=== PATIENT | female | born 1955 | race Caucasian/White ===

== ENCOUNTER → 2016-10-31 08:34 | Outpatient (CLI) | payer MEDICARE ==
[2015-05-04 13:16] VITALS: BMI 48.4
[~2016-10-31 08:34] MED LIST: CELEXA20 MG PO; ELIQUIS2.5 MG PO; MS CONTIN15 MG PO; OXYCODONE HCL5 MG PO; PRILOSEC20 MG PO; SYNTHROID112 MCG PO; TIZANIDINE; ULTRACET TABLET1 TAB PO; ULTRAM50 MG PO; ZANAFLEX4 MG PO
== END ==
LOC: D.MRI 08:34
DX: M54.2 Cervicalgia (principal); M54.5 Low back pain

== ENCOUNTER 2017-09-17 09:21 | Day surgery (SDC) | payer MEDICARE ==
[~2017-09-17] VITALS: Ht 165.1 cm; Wt 142.9 kg
--- NOTE | ~2017-09-17 | OP ---
PATIENT NAME: MAURILIO BRYAN MEDICAL RECORD: [id number] :57 LOCATION:[facility] ADMISSION DATE: SURGEON: TA HENRIQUEZ DO DATE OF OPERATION: 09/17/2017 PROCEDURE: EGD with balloon dilation and biopsies. INDICATIONS FOR PROCEDURE: Dysphagia, nausea, family history positive for cancer of the gastrointestinal tract. SCOPE: Olympus video gastroscope. MEDICATIONS: Propofol 300 mg IV per anesthesia. ESTIMATED BLOOD LOSS: Minimal. COMPLICATIONS: None. FINDINGS: Informed consent was given. The patient was made comfortable with the above medication. After reaching an adequate level of sedation by slow IV push, the patient was placed on her left side. The endoscope was then advanced under direct visualization through the mouth to the second portion of the duodenum. The upper, middle, and lower thirds of the esophagus appeared normal. At the GE junction, there was some possible stenosis. A 16-18 mm CRE balloon was placed through the working channel of the endoscope across the GE junction and the balloon was inflated up to 18 mm maximum diameter for dilation. Post-dilation endoscopic appearance was satisfactory. Also, at the GE junction, there was LA class C reflux induced esophagitis as well as probable continued Noriega's mucosa. A few cold forceps biopsies were taken to submit for histology and to rule out dysplasia. There was no endoscopic evidence of dysplasia by appearance. The endoscope was advanced beyond the GE junction into the stomach and retroflexed to view the cardia, where a small sliding hiatal hernia was present. Throughout the entire stomach, there was some granularity, which could be consistent with gastritis. Random biopsies were taken to submit for histology and to rule out H. pylori. The endoscope was advanced beyond the pylorus into the duodenum. The entire examined duodenum appeared normal down to the second portion. The endoscope was then withdrawn from the patient. The patient tolerated the procedure well and there were no complications. IMPRESSION: 1. Esophageal stenosis at the gastroesophageal junction, dilated to 18 mm. 2. Reflux esophagitis grade C. 3. 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 4. Small sliding hiatal hernia. 5. Possible gastritis with biopsies pending. PLAN AND RECOMMENDATIONS: 1. Discharge home when recovery parameters are met. 2. GERD diet and reflux precautions. 3. Increase omeprazole 40 mg daily for 8 weeks and then reduce this back down to 20 mg daily. 4. 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 5. We will follow the dysphagia. If this does not improve post-dilation and on OPERATIVE REPORT [id number] MAURILIO BRYAN WAITS the omeprazole 40 mg daily, she may require further workup in the form of a modified barium swallow and/or barium esophagram with esophageal manometry. TRANSINT:[id number] Voice Confirmation ID: [id number] DOCUMENT ID: [id number] TA HENRIQUEZ DO at 1524 CC: [id number] DICTATION DATE: 09/17/17 1242 ENGINEERING TECHNOLOGIST: 09/17/17 1453 [facility] 09/17/17 [id number] [place] [address]
[2017-09-17] MEDS ORDERED: NORVASC5 MG PO (10:30)
[2017-09-17 10:41] VITALS: BP 135/78; Ht 165.1 cm; Wt 142.9 kg
[2017-09-17 10:53] LABS: HEMATOCRIT 45.4 % (36.0-48.0); HEMOGLOBIN 15.3 g/dL (12-16); MCH 28.4 pg (26.0-34.0); MCHC 33.7 g/dL (31.0-37.0); MCV 84.2 fL (80.0-100.0); MEAN PLATELET VOLUME 10.3 fL (7.4-10.4); RBC 5.39 10x6/uL (4.00-5.40); RDW 13.8 % (11.5-14.5); WBC 10.3 10x3/uL (4.8-10.8)
== END 2017-09-17 14:00 | disposition home or self-care (01) ==
LOC: D.OPS 09:21
PROVIDERS: Anesthesiology
DX: K22.2 Esophageal obstruction (principal); K44.9 Diaphragmatic hernia without obstruction or gangrene; K21.0 Gastro-esophageal reflux disease with esophagitis; K22.70 Barrett's esophagus without dysplasia; K29.50 Unspecified chronic gastritis without bleeding; Z01.812 Encounter for preprocedural laboratory examination; Z80.0 Family history of malignant neoplasm of digestive organs

== ENCOUNTER → 2017-09-25 09:36 | Outpatient (CLI) | payer MEDICARE ==
[2017-09-17 10:41] VITALS: BMI 52.5
[~2017-09-25 09:36] MED LIST changes: +NORVASC5 MG PO
== END | disposition home or self-care (01) ==
LOC: D.RAD 09:36
DX: R13.10 Dysphagia, unspecified (principal)

== ENCOUNTER 2018-07-23 18:06 | Emergency (ER) | payer MEDICARE ==
[~2018-07-23] VITALS: Ht 165.1 cm; Wt 133.2 kg
[2018-07-23 18:12] VITALS: Ht 165.1 cm; Wt 133.2 kg
[2018-07-23 18:51] LABS: BASOPHILS 0.2 % (0-2); EOSINOPHILS 2.2 % (0-7); HEMATOCRIT 46.7 % (36.0-48.0); HEMOGLOBIN 15.5 g/dL (12-16); IMMATURE GRANULOCYTES 0.3 % (0-5); MCH 28.5 pg (26.0-34.0); MCHC 33.2 g/dL (31.0-37.0); MCV 85.8 fL (80.0-100.0); MEAN PLATELET VOLUME 10.2 fL (7.4-10.4); MONOCYTES 6.2 % (2-11); NEUTROPHILS 76.1 % (40-80); PLATELET COUNT 278 10x3/uL (130-400); RBC 5.44 10x6/uL (4.00-5.40); RDW 14.4 % (11.5-14.5); WBC 14.9 10x3/uL (4.8-10.8)
[2018-07-23 19:05] LABS: APPEARANCE CLEAR (CLEAR); BILIRUBIN NEGATIVE (NEGATIVE); COLOR YELLOW (YELLOW); GLUCOSE NEGATIVE (NEGATIVE); KETONE NEGATIVE (NEGATIVE); NITRITE NEGATIVE (NEGATIVE); PROTEIN 1+ mg/dL (NEGATIVE); UROBILINOGEN NORMAL (NORMAL)
[2018-07-23 19:06] LABS: WHITE CELLS - URINE 0-5 /hpf (0-5)
[2018-07-23 19:07] LABS: AMORPHOUS SEDIMENT <1+ /lpf (NONE SEEN); BACTERIA FEW /hpf (NONE SEEN); GRANULAR CAST OCC /lpf (NONE SEEN); HYALINE CAST OCC /lpf (NONE SEEN); MUCUS <1+ /lpf (NONE SEEN)
[2018-07-23 19:08] LABS: ALBUMIN 3.4 g/dL (3.4-5.0); BILIRUBIN - TOTAL 0.71 mg/dL (0.2-1.3); CALCIUM 9.5 mg/dL (8.5-10.1); CARBON DIOXIDE 26.9 mmol/L (21.0-32.0); POTASSIUM - SERUM 3.9 mmol/L (3.5-5.1); PROTEIN - SERUM 8.4 g/dL (6.4-8.2)
[2018-07-23] MEDS ORDERED: AUGMENTIN 875-11 TAB PO (21:18)
[2018-07-23] MEDS ORDERED: FLAGYL500 MG PO (21:18)
[2018-07-23 22:22] VITALS: BP 142/72
== END 2018-07-23 22:23 | disposition home or self-care (01) ==
LOC: D.ER 18:06
PROVIDERS: Emergency Medicine
DX: K50.00 Crohn's disease of small intestine without complications (principal); R10.32 Left lower quadrant pain; D72.829 Elevated white blood cell count, unspecified; I10 Essential (primary) hypertension

== ENCOUNTER → 2018-07-24 08:00 | Outpatient (CLI) | payer MEDICARE ==
[2018-07-23 18:12] VITALS: BMI 48.8
[~2018-07-24 08:00] MED LIST changes: +AUGMENTIN 875-11 TAB PO; +FLAGYL500 MG PO
== END | disposition home or self-care (01) ==
LOC: D.MAMMO 08:00
DX: Z12.31 Encounter for screening mammogram for malignant neoplasm of breast (principal)

== ENCOUNTER 2018-09-07 11:08 | Day surgery (SDC) | payer MEDICARE ==
[~2018-09-07] VITALS: Ht 165.1 cm; Wt 136.8 kg
[2018-09-07 11:40] LABS: HEMATOCRIT 46.6 % (36.0-48.0); HEMOGLOBIN 15.4 g/dL (12-16); MCH 28.4 pg (26.0-34.0); MCV 85.8 fL (80.0-100.0); MEAN PLATELET VOLUME 10.1 fL (7.4-10.4); RBC 5.43 10x6/uL (4.00-5.40); RDW 14.5 % (11.5-14.5); WBC 12.3 10x3/uL (4.8-10.8)
[2018-09-07] MEDS ORDERED: BENADRYL25 MG PO (12:24)
[2018-09-07 12:41] VITALS: BP 147/91; Ht 165.1 cm; Wt 136.8 kg
--- NOTE | 2018-09-07 14:59 | NUR ---
DC INSTRUCTIONS GIVEN TO PT/FAMILY. DC'D IV CATH FULLY INTACT. PT LEFT UNIT VIA WC AT 1500
--- NOTE | 2018-09-09 14:01 | OP ---
PATIENT NAME: MAURILIO BRYAN MEDICAL RECORD: [id number] :56 LOCATION:[facility] ADMISSION DATE: SURGEON: TA HENRIQUEZ DO DATE OF OPERATION: 09/07/2018 PROCEDURE: EGD with biopsies. INDICATIONS FOR PROCEDURE: Gastroesophageal reflux disease. SCOPE: Olympus video gastroscope. MEDICATIONS: Propofol IV per anesthesia. ESTIMATED BLOOD LOSS: Minimal. COMPLICATIONS: None. FINDINGS: Informed consent was given. The patient was made comfortable with the above medication. After reaching an adequate level of sedation by slow IV push, the patient was placed on her left side. The endoscope was advanced under direct visualization through the mouth to the second portion of the duodenum with ease. The entire esophagus appeared normal. At the GE junction, there was evidence of reflux esophagitis and possible Noriega esophagus. Cold forceps biopsies were taken from the site to submit for histopathology. The endoscope was advanced beyond the GE junction into the stomach and retroflexed to view the cardia, where a small sliding hiatal hernia was present. The fundus and body of the stomach appeared normal. As you approach the antrum and prepyloric region, there is some erythema and granularity consistent with possible gastritis. Random cold forceps biopsies were taken from this area to submit for histopathology and to rule out the presence of H. pylori. The endoscope was advanced into the duodenum, which appeared normal down to the second portion. The endoscope was then withdrawn back up into the esophagus and cold forceps biopsies were taken from the midesophagus to submit for histopathology and to rule out the presence of eosinophilic esophagitis. The endoscope was then withdrawn from the patient. The patient tolerated the procedure well, and there were no complications. IMPRESSION: 1. Reflux esophagitis and possible Noriega esophagus. Biopsies pending. 2. Erythema and granularity of the antrum and prepyloric regions consistent with possible gastritis. Biopsies pending. PLAN AND RECOMMENDATIONS: 1. Discharge home when recovery parameters are met. 2. Follow up biopsy specimen results. 3. Continue current medications. 4. Follow up in GI clinic. 5. Further recommendations to follow results of biopsies. TRANSINT:[id number] Voice Confirmation ID: [id number] DOCUMENT ID: [id number] OPERATIVE REPORT [id number] MAURILIO BRYAN TA HENRIQUEZ DO at 2498 CC: [id number] DICTATION DATE: 09/09/18 0803 MUD TEMPERER: 09/09/18 1147 [facility] [place] 09/07/18 [address] [id number] [place] [id number]
== END 2018-09-07 15:00 | disposition home or self-care (01) ==
LOC: D.OPS 11:08
PROVIDERS: Anesthesiology; ATTEND Internal Medicine Gastroenterology
DX: K21.0 Gastro-esophageal reflux disease with esophagitis (principal); Z01.812 Encounter for preprocedural laboratory examination

== ENCOUNTER → 2018-12-01 11:21 | Outpatient (CLI) | payer MEDICARE ==
[2018-09-07 12:41] VITALS: BMI 50.1
[~2018-12-01 11:21] MED LIST changes: +BENADRYL25 MG PO
== END | disposition home or self-care (01) ==
LOC: D.CT 11:21
PROVIDERS: ATTEND Urology
DX: R31.21 Asymptomatic microscopic hematuria (principal)

== ENCOUNTER 2018-12-22 09:05 | Day surgery (SDC) | payer MEDICARE ==
[2018-12-21 14:28] LABS: HEMATOCRIT 43.7 % (36.0-48.0); HEMOGLOBIN 14.5 g/dL (12-16); MCH 28.6 pg (26.0-34.0); MCHC 33.2 g/dL (31.0-37.0); MCV 86.2 fL (80.0-100.0); MEAN PLATELET VOLUME 10.5 fL (7.4-10.4); RBC 5.07 10x6/uL (4.00-5.40); RDW 14.3 % (11.5-14.5); WBC 13.6 10x3/uL (4.8-10.8)
[~2018-12-22] VITALS: Ht 165.1 cm; Wt 137.0 kg
[~2018-12-22 09:05] MED LIST changes: +HYDROCODON-ACE1 EAC7 PO; +OMEPRAZOLE40 MG PO; -PRILOSEC20 MG PO; -SYNTHROID112 MCG PO; +SYNTHROID175 MCG PO; +VITAMIN D5000 UNIT PO
[2018-12-22 10:54] VITALS: Ht 165.1 cm; Wt 137.0 kg
--- NOTE | 2018-12-22 17:18 | NUR ---
1700 PT LYING ON LEFT SIDE SLEEPING WELL. NAUSEA EASING AND TRAY ORDERED
--- NOTE | 2018-12-22 18:15 | NUR ---
174 ASSISTED TO BATHROOM AND VOIDED A LARGE AMT SOME BLOOD NOTED ON PAPER. VAGINAL PACKING REMOVED. TOLERATED WELL. BACK IN BED RECIEVED FULL LIQ TRAY AND TOLERATED WELL. SURGICAL UNDERWEAR ON WITH RAFA PAD IN PLACE, 1819 IV REMOVED FROM LEFT ANT WRIST. PRESSURE HELD AND DRESSING APPLIED
--- NOTE | 2018-12-22 21:46 | OP ---
PATIENT NAME: MAURILIO BRYAN MEDICAL RECORD: [id number] :57 LOCATION:[facility] ADMISSION DATE: SURGEON: ELIDA DOWNING MD DATE OF OPERATION: 12/22/2018 SURGEON: Elida Downing MD ANESTHESIA: General anesthesia by Magdaleno Buchanan CRNA. DIAGNOSES: Microscopic hematuria, female stress urinary incontinence. PROCEDURES: Cystoscopy and pubovaginal sling with [employer] Obtryx II mesh graft. FINDINGS: On cystoscopy, diffuse bladder inflammation, consistent with interstitial cystitis. No bladder tumors were seen. Single ureteral orifices bilaterally. No bladder tumors. No bladder injury. BLOOD LOSS: 200 mL. CLINICAL HISTORY: This is a 63-year-old female whom I initially saw for female stress urinary incontinence. She wanted to have a pubovaginal sling done, but she then was unable to afford it at that time. She came back with microscopic hematuria as a complaint. She has never smoked. She had a CT scan of the abdomen and the pelvis, which was normal. The urine was sent for cytology and this was also normal. She comes today to have cystoscopy performed to complete the microscopic hematuria workup. She decided that if she was going to be asleep for cystoscopy, then she would also like to have a pubovaginal sling done. SHE IS ALLERGIC TO MULTIPLE ANTIBIOTICS. She is not allergic clindamycin, so she was given clindamycin. DESCRIPTION OF PROCEDURE: The patient was given induction of general anesthesia. She was then placed in the low lithotomy position and shaved, prepped, and draped. She was put into Trendelenburg position so that the abdominal pannus would retract away from the vaginal area. After she was prepped and draped, a weighted speculum was used to hold down the posterior vaginal wall. A Felipe catheter was inserted into the bladder and put to bag drainage. Stay sutures of #2 nylon were placed. The anterior vaginal wall was infiltrated with Pitressin solution. Twenty units of Pitressin was dissolved in 100 mL of normal saline. This was injected for hydrodissection. A vertical midline incision of about 1 cm in length was made under the urethra. Dissection was made using the Metzenbaum scissors to extend laterally and then through the pubocervical fascia at the lateral portion of the attachment. The obturator membrane was cleared on each side. We then landmarked for the insertion of the trocars for the [employer] Obtryx II graft for transobturator passage. This was inferior to the insertion of the adductor longus muscle on the descending pubic ramus. Pen alia was made here on each side. A stab incision was then made. The helical trocars were then placed through the groin stab incision to go deep to the descending pubic ramus and then out through the anterior apex of the obturator membrane. Once in the vaginal dissection space, the tip of the graft was attached to the tip of the needle and then the needle was withdrawn to result in transobturator passage of the graft. This was done on each side. There was a tab on the midpoint of the graft, indicating the location for insertion under the mid urethra. Once this was located, we then removed the Felipe catheter and performed cystoscopy. No bladder injury was seen. During OPERATIVE REPORT [id number] MAURILIO BRYAN cystoscopy, the bladder was filled to 500 mL. Once the cystoscope was removed, there was leakage of urine per the urethra. Graft tension was gradually increased until suprapubic manual pressure could not elicit any further leakage of urine. I did loosen the graft just a little bit more as I did not want her to be in urinary retention. At this point, the clear plastic sheath material on either end of the graft was removed entirely. The graft arms where they exited the groin skin were cut to the skin level. The grafts were then pushed into the subcutaneous tissue. The skin was closed using simple interrupted 4-0 Vicryl. The vaginal incision was closed using running 4-0 Monocryl. The stay sutures were then cut and removed entirely. Vaginal packing consisting of Kerlix infiltrated with Silvadene cream was placed into the vagina. The Felipe catheter, which we had replaced after cystoscopy, was then removed. She will have a voiding trial today. If she is unable to void, then she will go home with the Felipe catheter to bag drainage. The vaginal packing will also be removed prior to her going home. I will see her in follow up next week to check on her voiding symptoms. TRANSINT:[id number] Voice Confirmation ID: [id number] DOCUMENT ID: [id number] ELIDA DOWNING MD at 2141 CC: [id number] DICTATION DATE: 12/22/18 1426 SUPERVISOR VAT HOUSE: 12/22/18 1518 [facility] 12/22/18 [facility] [address] [place] [id number]
== END 2018-12-22 19:00 | disposition home or self-care (01) ==
LOC: D.OPS 09:05 → D.PAN 11:45 → D.OPS 11:45 → D.PAN 12:40 → D.OPS 12:40
PROVIDERS: Anesthesiology; ATTEND Urology
DX: N39.3 Stress incontinence (female) (male) (principal); R31.29 Other microscopic hematuria; Z01.812 Encounter for preprocedural laboratory examination

== ENCOUNTER → 2018-12-28 17:32 | Outpatient (CLI) | payer MEDICARE ==
[2018-12-22 10:54] VITALS: BMI 50.3
== END | disposition home or self-care (01) ==
LOC: D.LABREF 17:32
PROVIDERS: ATTEND Urology
DX: N39.0 Urinary tract infection, site not specified (principal)

== ENCOUNTER → 2019-01-27 18:30 | Outpatient (CLI) | payer MEDICARE ==
[2018-12-22 10:54] VITALS: BMI 50.3
== END | disposition home or self-care (01) ==
LOC: D.LABREF 18:30
PROVIDERS: ATTEND Urology
DX: N39.0 Urinary tract infection, site not specified (principal)

== ENCOUNTER → 2019-03-08 13:40 | Outpatient (CLI) | payer MEDICARE ==
[2018-12-22 10:54] VITALS: BMI 50.3
== END | disposition home or self-care (01) ==
LOC: D.LABREF 13:40
PROVIDERS: ATTEND Urology
DX: Z00.00 Encounter for general adult medical examination without abnormal findings (principal)